=== PATIENT | female | born 1990 | race Caucasian/White ===

== ENCOUNTER 2016-10-17 21:46 | Emergency (ER) | payer MEDICAID ==
[~2016-10-17] VITALS: Ht 160 cm; Wt 76.0 kg
[~2016-10-17 21:46] MED LIST: ACET325T33 PO; FERR240T9 PO; PREN1TAB62 PO; PRENAT PO
[2016-10-17 22:24] VITALS: Ht 160 cm; Wt 76.0 kg
[2016-10-18] MEDS ORDERED: ONDANSETRON 4 MG INJ IV STA (00:18)
[2016-10-18] MEDS ORDERED: morphine 4 MG/ML VIAL IV STA (00:18)
[2016-10-18] MEDS ORDERED: SOD CHLORIDE 0.9% 1,000 ML IV ONE (00:30)
--- NOTE | 2016-10-18 00:49 | ERD ---
ER Documentation Chief Complaint Date/Time DATE: 10/18/16 TIME: 00:47 Chief Complaint L SIDE PELVIC PAIN, VAG BLEED SINCE JUNE WORST TODAY, DIZZY HPI 26-year-old female presents here in emergency department for complaints of left pelvic pain and vaginal bleeding since June, patient has an IUD, scheduled for removal in 3 days. Patient has been having vaginal bleeding, soaked multiple pads per day. Patient is complaining of pelvic pain and cramping pain, 6/10 scale, is accompanying the vaginal bleeding. Patient denies any nausea vomiting fever or chills. Patient denies any diarrhea or constipation. She denies any vaginal discharge ROS All systems reviewed and are negative except as per history of present illness. Medications Home Meds Reported Medications Vit-Iron Fumarate-FA ( Vitamin Tablet) 1 Each Tablet, 1 TAB PO DAILY, TAB 01/11/16 Acetaminophen* (Tylenol*) 325 Mg Tablet, 650 MG PO Q4H Y for MILD PAIN LEVEL 1-3 , TAB 12/15/15 Ferrous Gluconate (Iron) 1 Tab Tablet, 1 TAB PO DAILY, TAB 12/15/15 Multivit/Min/Fol Ac/Iron/Pren* ( S*) 1 Tab Tab, 1 TAB PO DAILY, TAB 10/30/15 Allergies Allergies: Coded Allergies: No Known Allergy (Unverified , 01/11/16) PMhx/Soc Medical and Surgical Hx: pt denies Medical Hx, pt denies Surgical Hx History of Surgery: No Anesthesia Reaction: No Hx Neurological Disorder: No Hx Respiratory Disorders: No Hx Cardiac Disorders: No Hx Psychiatric Problems: No Hx Miscellaneous Medical Probl: No Hx Alcohol Use: No Hx Substance Use: No Hx Tobacco Use: No Smoking Status: Never smoker FmHx Family History: No coronary disease, No diabetes, No other Physical Exam Vitals Vital Signs Date Time Temp Pulse Resp B/P Pulse Ox O2 Delivery O2 Flow Rate FiO2 10/17/16 22:24 98.3 58 20 111/68 100 Physical Exam GENERAL: The patient is well developed and appropriate for usual state of health, in no apparent distress. CHEST: Clear to auscultation bilaterally. There are no rales, wheezes or rhonchi. HEART: Regular rate and rhythm. No murmurs, clicks, rubs or gallops. No S3 or S4. ABDOMEN: Soft, nontender and nondistended. Good bowel sounds. No rebound or guarding. No gross peritonitis. No gross organomegaly or masses. No Cordon sign or McBurney point tenderness. BACK: No midline or flank tenderness. EXTREMITIES: Equal pulses bilaterally. There is no peripheral clubbing, cyanosis or edema. No focal swelling or erythema. Full range of motion. Grossly neurovascularly intact. NEURO: Alert and oriented. Cranial nerves 2-12 intact. Motor strength in all 4 extremities with 5/5 strength. Sensation grossly intact. Normal speech and gait. SKIN: There is no apparent rash or petechia. The skin is warm and dry. HEMATOLOGIC AND LYMPHATIC: There is no evidence of excessive bruising or lymphedema. No gross cervical, axillary, or inguinal lymphadenopathy. Result Diagram: 10/18/16 00510/18/16 005 Results 24 hrs Laboratory Tests Test 10/18/16 00:35 10/18/16 00:51 Urine Color LT. YELLOW Urine Clarity SL HAZY Urine pH 5.5 Urine Specific [place] 1.020 Urine Ketones NEGATIVE Urine Nitrite NEGATIVE Urine Bilirubin NEGATIVE Urine Urobilinogen 0.2 E.U./dL Urine Leukocyte Esterase NEGATIVE Urine Microscopic RBC >200/HPF Urine Microscopic WBC 0-2/HPF Urine Squamous Epithelial Cells FEW Urine Bacteria RARE Urine Hemoglobin 3+ Urine Glucose NEGATIVE% Urine Total Protein NEGATIVE White Blood Count 8.310^3/ul Red Blood Count 4.7610^6/ul Hemoglobin 14.1g/dl Hematocrit 41.9% Mean Corpuscular Volume 88.0fl Mean Corpuscular Hemoglobin 29.6pg Mean Corpuscular Hemoglobin Concent 33.7g/dl Red Cell Distribution Width 12.1% Platelet Count 68480^3/UL Mean Platelet Volume 11.3fl Neutrophils % 53.4% Lymphocytes % 38.5% Monocytes % 6.4% Eosinophils % 1.2% Basophils % 0.4% Nucleated Red Blood Cells % 0.0/100WBC Neutrophils # 4.510^3/ul Lymphocytes # 3.210^3/ul Monocytes # 0.510^3/ul Eosinophils # 0.110^3/ul Basophils # 0.010^3/ul Nucleated Red Blood Cells # 0.010^3/ul Sodium Level 137mmol/L Potassium Level 3.9mmol/L Chloride Level 103mmol/L Carbon Dioxide Level 23mmol/L Anion Gap 15 Blood Urea Nitrogen 15mg/dl Creatinine 0.69mg/dl Glucose Level 106mg/dl Calcium Level 9.9mg/dl Total Bilirubin 0.3mg/dl Direct Bilirubin 0.00mg/dl Indirect Bilirubin 0.3mg/dl Aspartate Amino Transf (AST/SGOT) 28IU/L Alanine Aminotransferase (ALT/SGPT) 30IU/L Alkaline Phosphatase 118IU/L Total Protein 8.2g/dl Albumin 5.0g/dl Globulin 3.20g/dl Albumin/Globulin Ratio 1.56 Beta HCG, Quantitative < 2.4mIU/ml Current Medications Medications (Trade) Dose Ordered Sig/Sudarshan Route PRN Reason Start Time Stop Time Status Last Admin Dose Admin Sodium Chloride (NS) 1,000 ml @ 1,000 mls/hr Q1H ONCE IV 10/18/16 00:30 10/18/16 01:29 DC 10/18/16 01:19 Morphine Sulfate (morphine) 4 mg ONCE STAT IV 10/18/16 00:18 10/18/16 00:21 DC 10/18/16 01:19 Ondansetron HCl (Zofran Inj) 4 mg ONCE STAT IV 10/18/16 00:18 10/18/16 00:21 DC 10/18/16 01:19 Patient was given medication for pain here in emergency department, after treatment, patient verbalized feeling much better. Patient's pain is improved. Patient was given Zofran here in the emergency department. After treatment, patient was able to tolerate po fluids here in the emergency department without any vomiting. There is no signs and symptoms of dehydration. Normal saline IV bolus was given here in emergency department for rehydration, patient tolerated IV fluids. PROCEDURE: US Non-OB Pelvis. CLINICAL INDICATION: Vaginal bleeding. TECHNIQUE: Multiple sonographic images of the pelvis were obtained utilizing a transabdominal and endovaginal technique. The images were reviewed on a PACS workstation. COMPARISON: None. FINDINGS: The uterus is visualized and measures 7.0 x 3.9 x 5.9 cm. The endometrial echo complex is normal and measures 5 mm. There is an intrauterine device within the endometrial canal. The right ovary measures 3.4 x 1.5 x 1.9 cm. The left ovary measures 4.2 x 2.5 x 5.3 cm. There is a 3.5 cm left ovarian cyst with internal echoes, probably a hemorrhagic cyst. Blood flow is demonstrated to both ovaries. No adnexal masses are noted. There is no evidence of free fluid. IMPRESSION: 1. Intrauterine device in place. 2. 3.5 cm left ovarian cyst with internal echoes, probably hemorrhagic cyst. A repeat ultrasound should be obtained in 6-12 weeks to reassess this lesion. RPTAT: HTAR .James Jimenez MD, MD Date Time Electronically viewed and signed by .James Jimenez MD, MD on 10/18/2016 01:59 .R/ CC: JANE MONTEJO [employer] Procedures/MDM Medical Decision Making: Patients vaginal bleeding is most likely consistent with dysfunctional uterine bleeding caused by the IUD, patient also has an ovarian cyst which may be causing the pain. No symptoms of ovarian torsion. Patient does not show any evidence of hypovolemic shock. Patients hemoglobin and hematocrit is stable. There is low suspicion for ectopic . SYED results show IUD in place and an ovarian cyst possible hemorrhagic BetaHCG Quantitative is low negative for pregnancyThere is no signs of symptoms of dehydration. There is low suspicion for sepsis. Patient appears well and is hemodynamically stable. Disposition: Home. Condition: Stable Prescription: Ibuprofen, tramadol, ferrous sulfate, Colace Instructions: Patient is advised to do bed rest, avoid heavy lifting, and avoid having sex until cleared by OB doctor. Patient is advised to follow up with OB doctor or here at the ER in 48 hours for reevaluation of symptoms, repeat beta HCG quantitative and ultrasound. Patient is advised that is symptoms are worst, severe bleeding, dizziness, severe abdominal pain, fever, worst signs and symptoms to return to the emergency department immediately. Departure Diagnosis: Primary Impression: Vaginal bleeding Additional Impressions: Ovarian cyst Laterality: left Qualified Code: N83.202 - Cyst of left ovary IUD (intrauterine device) in place Condition: Stable Patient Instructions: Control: IUD (Intrauterine Device), Dysfunctional Uterine Bleeding, Ovarian Cyst Additional Instructions: Patient is advised to do bed rest, avoid heavy lifting, and avoid having sex until cleared by OB doctor. Patient is advised to follow up with OB doctor or here at the ER in 48 hours for reevaluation of symptoms, repeat beta HCG quantitative and ultrasound. Patient is advised that is symptoms are worst, severe bleeding, dizziness, severe abdominal pain, fever, worst signs and symptoms to return to the emergency department immediately. JANE MONTEJO NP Oct 18, 2016 00:49
[2016-10-18 01:00] LABS: ADD SCAN DIFF NO
[2016-10-18 01:00] LABS: ADD UMIC YES; URINE BILIRUBIN (Dip) NEGATIVE (NEGATIVE); URINE BLOOD (Dip) 3+ (NEGATIVE); URINE COLOR LT. YELLOW (YELLOW); URINE GLUCOSE (Dip) NEGATIVE (NEGATIVE); URINE KETONES (Dip) NEGATIVE (NEGATIVE); URINE LEUKOCYTE ESTERASE (Dip) NEGATIVE (NEGATIVE); URINE NITRITE (Dip) NEGATIVE (NEGATIVE); URINE TOTAL PROTEIN (Dip) NEGATIVE (NEGATIVE); URINE UROBILINOGEN (Dip) 0.2 E.U./dL (0.1-1.0)
[2016-10-18 01:02] LABS: BASOPHILS % 0.4 % (0.0-2.0); EOSINOPHILS # 0.1 10^3/ul (0.0-0.5); EOSINOPHILS % 1.2 % (0.0-7.0); HEMATOCRIT 41.9 % (37.0-47.0); HEMOGLOBIN 14.1 g/dl (12.0-16.0); LYMPHOCYTES # 3.2 10^3/ul (0.8-2.9); LYMPHOCYTES % 38.5 % (15.0-51.0); MEAN CORPUSCULAR HEMOGLOBIN 29.6 pg (29.0-33.0); MEAN CORPUSCULAR HGB CONC 33.7 g/dl (32.0-37.0); MEAN PLATELET VOLUME 11.3 fl (7.4-10.4); MONOCYTE # 0.5 10^3/ul (0.3-0.9); MONOCYTES % 6.4 % (0.0-11.0); NEUTROPHIL # 4.5 10^3/ul (1.6-7.5); NEUTROPHILS % 53.4 % (39.0-77.0); PLATELET COUNT 256 10^3/UL (140-415); RED BLOOD COUNT 4.76 10^6/ul (4.20-5.40); RED CELL DISTRIBUTION WIDTH 12.1 % (11.5-14.5); WHITE BLOOD COUNT 8.3 10^3/ul (4.8-10.8)
[2016-10-18 01:23] LABS: URINE RBCS >200 /HPF (0)
[2016-10-18 01:24] LABS: BACTERIA,URINE RARE; SQUAMOUS EPITHELIAL CELL,UR FEW
[2016-10-18 01:29] LABS: POTASSIUM 3.9 mmol/L (3.5-5.1)
[2016-10-18 01:31] LABS: ALBUMIN/GLOBULIN RATIO 1.56; BILIRUBIN,INDIRECT 0.3 mg/dl (0-1.1); BILIRUBIN,TOTAL 0.3 mg/dl (0.2-1.3); CREATININE 0.69 mg/dl (0.44-1.00); TOTAL PROTEIN 8.2 g/dl (6.1-8.1)
[2016-10-18 01:32] LABS: CALCIUM 9.9 mg/dl (8.4-10.2)
--- NOTE | 2016-10-18 01:59 | RADRPT ---
PROCEDURE: US Non-OB Pelvis. CLINICAL INDICATION: Vaginal bleeding. TECHNIQUE: Multiple sonographic images of the pelvis were obtained utilizing a transabdominal and endovaginal technique. The images were reviewed on a PACS workstation. COMPARISON: None. FINDINGS: The uterus is visualized and measures 7.0 x 3.9 x 5.9 cm. The endometrial echo complex is normal and measures 5 mm. There is an intrauterine device within the endometrial canal. The right ovary measures 3.4 x 1.5 x 1.9 cm. The left ovary measures 4.2 x 2.5 x 5.3 cm. There is a 3.5 cm left ovarian cyst with internal echoes, probably a hemorrhagic cyst. Blood flow is demonstra miller to both ovaries. No adnexal masses are noted. There is no evidence of free fluid. IMPRESSION: 1. Intrauterine device in place. 2. 3.5 cm left ovarian cyst with internal echoes, probably hemorrhagic cyst. A repeat ultrasound s hould be obtained in 6-12 weeks to reassess this lesion. RPTAT: HTAR .James Jimenez MD, Date Time Electronically viewed and signed by .James Jimenez MD, MD on 10/18/2016 01:59 .R/
[2016-10-18] MEDS ORDERED: IBUP-1542 PO (02:27)
[2016-10-18] MEDS ORDERED: POLY17PO6 PO (02:27)
[2016-10-18] MEDS ORDERED: TRAM50TA2 PO (02:27)
[2016-10-18] MEDS ORDERED: FER325 PO (02:27)
[2016-10-18 03:19] VITALS: BP 113/72; PULSE 76; RESP 16
== END 2016-10-18 03:21 | disposition home or self-care (01) ==
LOC: FTE 21:46
DX: N93.9 Abnormal uterine and vaginal bleeding, unspecified (principal); N83.202 Unspecified ovarian cyst, left side; Z97.5 Presence of (intrauterine) contraceptive device
CPT/HCPCS: 76830; 76856; 80053; 81001; 81003; 84702; 85025; 86850; 86900; 86901; 96374; 96375; J2270; J2405; J7030; Z7502